=== PATIENT | male | born 1975 | race American Indian/Alaskan Native ===

== ENCOUNTER 2018-12-09 23:32 | Emergency (ER) | payer OTHER ==
[2018-12-10] MEDS ORDERED: BOOSTRIX IM ONE (01:49)
--- NOTE | 2018-12-10 02:23 | Emergency Department Report ---
HPI - General Chief Complaint: Head Injury Time Seen by Provider: 12/10/18 01:46 - HPI HPI: 43-year-old -[place] male presents to the emergency department with complaint of right-sided facial pain and right ear pain, along with some bleeding from the right ear, after he was accidentally hit on the right side of his face by a metal pipe earlier today. The patient was at work using a desirae when the metal pipe accidentally came up and hit him in the face. He had ear buds in place at the time. He has some bleeding from the ear, pain in the ear, but denies any decreased hearing. He has a past medical history of diabetes and hypertension. ED Past Medical Hx - Past Medical History Previous Medical History?: Yes Hx Hypertension: Yes Hx Diabetes: Yes - Surgical History Past Surgical History?: No - Social History Smoking Status: Never Smoker Substance Use Type: None - Medications Home Medications: Home Medications Medication Instructions Recorded Confirmed Last Taken Type HYDROcodone/APAP 5-325 [Odd 1 each PO Q6HR PRN #10 tablet 12/10/18 Unknown Rx 5/325] Sulfamethoxazole/Trimethoprim 1 each PO BID #14 tablet 12/10/18 Unknown Rx [Bactrim DS TAB] ED Review of Systems ROS: Stated complaint: R EAR/FACE INJURY Other details as noted in HPI Comment: All other systems reviewed and negative Constitutional: denies: chills, fever Eyes: denies: eye pain, vision change ENT: ear pain, other (facial pain). denies: throat pain Respiratory: denies: cough, shortness of breath Cardiovascular: denies: chest pain, palpitations Gastrointestinal: denies: abdominal pain, vomiting Genitourinary: denies: dysuria, frequency Musculoskeletal: denies: back pain, arthralgia Skin: denies: rash, lesions Neurological: denies: weakness, numbness Physical Exam - Physical Exam Vital Signs: Vital Signs 12/09/18 23:46 Temperature 98.2 F Pulse Rate 96 H Respiratory 18 Rate Blood Pressure 141/96 O2 Sat by Pulse 97 Oximetry Physical Exam: GENERAL: The patient is well-developed well-nourished. HENT: Normocephalic. Atraumatic. Patient has moist mucous membranes. There is some swelling and an abrasion or small laceration to the anterior mid right external ear canal. I can visualize about one third of the tympanic membrane and there is no perforation seen to this area. There is some tenderness to palpation to the right side of the face and around the ear. EYES: Extraocular motions are intact. Pupils equal reactive to light bilaterally. NECK: Supple. Trachea is midline. CHEST/LUNGS: Clear to auscultation. There is no respiratory distress noted. HEART/CARDIOVASCULAR: Regular. There is no tachycardia. There is no murmur. ABDOMEN: Abdomen is soft, nontender. Patient has normal bowel sounds. There is no abdominal distention. SKIN: Skin is warm and dry. NEURO: The patient is awake, alert, and oriented. The patient is cooperative. The patient has no focal neurologic deficits. The patient has normal speech. MUSCULOSKELETAL: There is no tenderness or deformity. There is no limitation range of motion. There is no evidence of acute injury. ED Course Vital Signs 12/09/18 23:46 Temperature 98.2 F Pulse Rate 96 H Respiratory 18 Rate Blood Pressure 141/96 O2 Sat by Pulse 97 Oximetry ED Medical Decision Making - Radiology Data Radiology results: report reviewed PROCEDURE: CT HEAD/BRAIN WO CON TECHNIQUE: Computerized tomography of the head was performed without contrast material. CT DOSE LENGTH PRODUCT: mGycm HISTORY: headache, trauma COMPARISONS: None . FINDINGS: Skull and scalp: Normal . Paranasal sinuses: Normal . Ventricles and subarachnoid spaces: Normal . Cerebrum: No evidence of hemorrhage, acute infarction or mass . Cerebellum and brainstem: No evidence of hemorrhage, acute infarction or mass . Vasculature: Normal . Other: None . ASPECTS: 10 IMPRESSION: Normal Examination . This document is electronically signed by Nargis Tyson MD., December 10 2018 02:31:36 AM ET Transcribed By: RB Dictated By: NARGIS TYSON MD Electronically Authenticated By: NARGIS TYSON MD Signed Date/Time: 12/10/18 0234 PROCEDURE: CT ORBIT/EAR/FOSSA WO CON TECHNIQUE: Routine thin cut axial imaging was obtained through the temporal bones without contrast with sagittal coronal reconstructions. HISTORY: trauma to the right ear and side of the face COMPARISONS: None FINDINGS: The mastoid air cells are well pneumatized bilaterally. There is no evidence of fracture or soft tissue injury. The ossicles and labyrinthine structures appear normal. Both external auditory canals appear normal. The visualized sinuses revealed a 10 mm polyp/mucous retention cyst in the posterior aspect of the right maxillary sinus. IMPRESSION: No evidence of acute bony or soft tissue injury involving the temporal bone structures bilaterally. Small polyp/mucous retention cyst in the right maxillary sinus.. This document is electronically signed by Nargis Tyson MD., December 10 2018 02:36:17 AM ET Transcribed By: JENNIFER Dictated By: NARGIS TYSON MD Electronically Authenticated By: NARGIS TYSON MD Signed Date/Time: 12/10/18 0237 - Medical Decision Making This patient presents to the emergency department after being hit on the right side of his face and to the ear with some type of a metal pole. There is some swelling and either an abrasion or small laceration to the external ear canal patient had earphones in. I was only able to visualize about one third of the tympanic membrane. There is no perforation seen in this area. Patient was given a tetanus booster. A CT scan of the head was done that did not show any bleed, shift, mass, ischemia, or any acute process. CT of the facial bones also does not show any fractures or any acute processes. The patient will be placed on antibiotics, given pain medication, and given referrals for otolaryngology. He is instructed to return to the emergency Department with any worsening of his symptoms or any acute distress. He denies any decreased hearing and the bleeding has ceased. - Differential Diagnosis TM perforation, facial fractures, external ear laceration Critical Care Time: No Critical care attestation.: If time is entered above; I have spent that time in minutes in the direct care of this critically ill patient, excluding procedure time. ED Disposition Clinical Impression: Right ear pain Facial trauma Qualifiers: Encounter type: initial encounter Qualified Code(s): S09.93XA - Unspecified injury of face, initial encounter Laceration of right ear canal Qualifiers: Encounter type: initial encounter Qualified Code(s): S01.311A - Laceration without foreign body of right ear, initial encounter Disposition: -01 TO HOME OR SELFCARE Is pt being admited?: No Condition: Stable Additional Instructions: Please follow up with a primary care physician. He will also need to follow up with a glove cuffer, ear nose and throat physician, regarding your right ear pain and concern for a external ear canal abrasion or laceration. Take the antibiotics as prescribed. Return to the emergency Department with any worsening of your symptoms or any acute distress. You have been prescribed a medication that is sedating and therefore should not be taken prior to driving, working, and responsible for children and in no way should be mixed with alcohol of any quantity. Prescriptions: Sulfamethoxazole/Trimethoprim [Bactrim DS TAB] 1 each PO BID #14 tablet HYDROcodone/APAP 5-325 [Odd 5/325] 1 each PO Q6HR PRN #10 tablet PRN Reason: Pain Referrals: DON KNIGHT MD [Staff Physician] - 2-3 Days VIK MENDEZ MD [Staff Physician] - 2-3 Days Forms: Work/School Release Form(ED) Time of Disposition: 03:09
--- NOTE | 2018-12-10 02:34 | Cat Scan Report ---
PROCEDURE: CT HEAD/BRAIN WO CON TECHNIQUE: Computerized tomography of the head was performed without contrast material. CT DOSE LENGTH PRODUCT: mGycm HISTORY: headache, trauma COMPARISONS: None . FINDINGS: Skull and scalp: Normal . Paranasal sinuses: Normal . Ventricles and subarachnoid spaces: Normal . Cerebrum: No evidence of hemorrhage, acute infarction or mass . Cerebellum and brainstem: No evidence of hemorrhage, acute infarction or mass . Vasculature: Normal . Other: None . ASPECTS: 10 IMPRESSION: Normal Examination . This document is electronically signed by Markell Tyson MD., December 10 2018 02:31:36 AM ET
[2018-12-10] MEDS ORDERED: NORCO 5/325 PO ONE (02:37)
--- NOTE | 2018-12-10 02:37 | Cat Scan Report ---
PROCEDURE: CT ORBIT/EAR/FOSSA WO CON TECHNIQUE: Routine thin cut axial imaging was obtained through the temporal bones without contrast w ith sagittal coronal reconstructions. HISTORY: trauma to the right ear and side of the face COMPARISONS: None FINDINGS: The mastoid air cells are well pneumatized bilaterally. There is no evidence of fracture or soft tiss ue injury. The ossicles and labyrinthine structures appear normal. Both external auditory canals appe ar normal. The visualized sinuses revealed a 10 mm polyp/mucous retention cyst in the posterior aspec t of the right maxillary sinus. IMPRESSION: No evidence of acute bony or soft tissue injury involving the temporal bone structures bilaterally. Small polyp/mucous retention cyst in the right maxillary sinus.. This document is electronically signed by Markell Tyson MD., December 10 2018 02:36:17 AM ET
[2018-12-10 03:47] VITALS: BP 140/98
== END 2018-12-10 03:47 | disposition home or self-care (01) ==
LOC: ED 23:32
DX: S01.311A Laceration without foreign body of right ear, initial encounter (principal); I10 Essential (primary) hypertension; E11.9 Type 2 diabetes mellitus without complications; W22.8XXA Striking against or struck by other objects, initial encounter; Y93.89 Activity, other specified; Y92.89 Other specified places as the place of occurrence of the external cause; Y99.8 Other external cause status
CPT/HCPCS: 70450; 70480; 90471; 90715